=== PATIENT | female | born 1960 | race Caucasian/White ===

== ENCOUNTER 2017-07-21 13:07 | Observation (INO) | payer MEDICARE, MEDICAID ==
[2017-07-21 14:27] LABS: Bilirubin Negative (Negative); Blood, Urine Negative (Negative); Clarity CLEAR (Clear); Glucose, Urine (Dipstick) 100 mg/dL (Negative); Leukocyte Trace (Negative); Nitrite Negative (Negative); Protein, Urine (Dipstick) Negative (Neg-Trace); Urobilinogen 0.2 mg/dL (0.2-1.0)
[2017-07-21 14:29] LABS: Bacteria/HPF 4+ HPF (None Seen); Hyaline Casts/LPF 0-3 HYALINE CAST LPF (0-3 Hyaline); RBC/HPF 0-3 HPF (0-3); Squamous Epithelial 0-3 HPF (0-3)
[2017-07-21] MEDS ORDERED: Nitroglycerin 0.4 MG TAB (25 Tab Bottle) ONE (14:38)
[2017-07-21] MEDS ORDERED: Aspirin 325 MG TAB ONE (14:38)
--- NOTE | 2017-07-21 15:06 | RAD ---
UPRIGHT PORTABLE CHEST 1 VIEW: Date: 07/21/17 HISTORY: 56-year-old female with history of chest pain and high blood pressure. COMPARISON: 08/09/16. FINDINGS: There are some vertically oriented parenchymal, as well as some pleural chronic changes in the right chest. Heart size is normal. The left lung is clear. IMPRESSION: Stable pleural and parenchymal scarring changes in the right chest. No significant acute process. POS: OFF
[2017-07-21 15:42] LABS: #Basophils 0.1 thou/uL (0.0-0.2); #Eosinphils 0.3 thou/uL (0.0-0.7); #Lymphocytes 2.3 thou/uL (1.20-3.40); #Monocytes 1.1 thou/uL (0.11-0.59); #Neutrophils 6.9 thou/uL (1.40-6.50); %Basophils 0.7 % (0.0-1.0); %Eosinophils 3.2 % (0.0-10.0); %Lymphocytes 21.5 % (21.0-51.0); %Neutrophils 64.5 % (42.0-75.0); Hemoglobin 12.9 g/dL (12.0-16.0); Mean Corpuscular Hemoglobin 27.3 pg (27.0-31.0); Mean Corpuscular Volume 82.7 fl (81.0-99.0); Mean Platelet Volume 6.7 fL (7.4-10.4); Platelet Count 356 thou/uL (130-400); RBC Distribution Width 13.6 % (11.5-14.5); Red Blood Cell (RBC) Count 4.72 mill/uL (4.20-5.40); White Blood Cell (WBC) Count 10.7 thou/uL (4.8-10.8)
[2017-07-21 15:55] LABS: ALT (SGPT) 23 U/L (8-55); AST (SGOT) 18 U/L (5-34); Albumin 3.8 g/dL (3.5-5.0); Alkaline Phosphatase 86 U/L (40-150); Anion Gap 8 mmol/L (10-20); BUN (Urea Nitrogen) 15 mg/dL (9.8-20.1); Bilirubin, Total 0.4 mg/dL (0.2-1.2); CK (CPK) 38 U/L (29-168); Calc. Creatinine Clearance 0 mL/min (70-130); Carbon Dioxide 27 mmol/L (22-29); Chloride 103 mmol/L (98-107); Estimated GFR-MDRD 61; Globulin 3.2 g/dL (2.4-3.5); Glucose 121 mg/dL (70-105); Lipase 26 U/L (8-78); Sodium 135 mmol/L (136-145)
[2017-07-21 15:59] LABS: CKMB 0.8 ng/mL (0-6.6); Troponin I Less than 0.010 ng/mL (< 0.028)
[2017-07-21] MEDS ORDERED: Morphine 4 MG/ML VIAL ONE (17:25)
[2017-07-21] MEDS ORDERED: Nitroglycerin 0.4 MG TAB (25 Tab Bottle) PO PRN (17:27)
[2017-07-21] MEDS ORDERED: Milk Of Magnesia 30 ML UDCUP PO PRN (17:29)
[2017-07-21 18:51] LABS: Troponin I Less than 0.010 ng/mL (< 0.028)
[2017-07-21] MEDS ORDERED: Promethazine 25 MG TAB PO PRN (19:05)
[2017-07-21] MEDS ORDERED: clonazePAM 0.5 MG TAB PO PRN (19:05)
[2017-07-21] MEDS ORDERED: Dextrose 5% in Water 1,000 ML IV PRN (19:29)
[2017-07-21] MEDS ORDERED: HumaLOG 300 UNITS/3 ML VIAL SC PRN ×2 (19:29)
[2017-07-21] MEDS ORDERED: Dextrose 50% Abboject 50 ML SYRINGE SLOW IVP PRN (19:29)
[2017-07-21 19:41] VITALS: BMI 38.7
[2017-07-21] MEDS ORDERED: Nicotine 14 MG PATCH TD SCH (20:00)
--- NOTE | 2017-07-21 20:15 | HP ---
PRIMARY CARE PHYSICIAN: None. PRESENTING COMPLAINT: Chest pain. HISTORY OF PRESENT ILLNESS: Ms. Ryan Escobar is a 56-year-old female with a past medical history of C HF, type 2 diabetes mellitus, hypertension, depression, hyperlipidemia, hypothyroidism, CKD 3 who pre sented to the emergency room with a 1-week history of intermittent substernal chest pain. She descri bes as heaviness in her chest "like someone sitting on her chest" associated with shooting pains retr osternally. Pain has been worsening for the past few days and then she decided to come to the emerge ncy room. She states it is an 8/10, lasted for about 20 minutes, does not radiate and has no clear a ggravating or relieving factors as it occasionally occurs while walking and sometimes when she is lyi ng down in bed. She has not had any previous episodes. She denies shortness of breath, PND, orthopn ea, palpitations or lower extremity edema. She has not had a stress test in the past or cardiac cath eterization. PAST MEDICAL HISTORY: As stated in the HPI. PAST SURGICAL HISTORY: Cholecystectomy, hysterectomy, orthopedic surgery on the left knee, herniorrh aphy, hysterectomy. FAMILY HISTORY: Reviewed and noncontributory. SOCIAL HISTORY: Smokes half a pack of cigarettes a day, but denies drinking alcohol or using illicit drugs. ALLERGIES: PENICILLIN and FLAGYL. HOME MEDICATIONS: Cholecalciferol 1000 units daily, famotidine 20 mg at bedtime, ranitidine 150 mg b .i.d., amlodipine 5 mg daily, aspirin 81 mg daily, bupropion hydrochloride 75 mg daily, carvedilol 25 mg b.i.d. with meals, citalopram hydrobromide 40 mg daily, Ativan 0.5 mg daily, clonidine 0.1 mg t.i .d., furosemide 40 mg daily, hydralazine 75 mg t.i.d., levothyroxine sodium 125 mcg daily, lisinopril 20 mg daily, lovastatin 40 mg q.p.m., metformin 1000 mg b.i.d., nifedipine 60 mg daily, omeprazole 2 0 mg daily, potassium chloride 20 mEq daily, promethazine 25 mg q.12 hours p.r.n., trazodone 100 mg a t bedtime. REVIEW OF SYSTEMS: Constitutional: Negative. HEENT: Negative. Cardiovascular: Per HPI. Respira tory: Denies cough, shortness of breath, sputum production. GI: Negative. : Negative. Musculoskeletal: Negative. Skin: Negative. Neurologic: Negative. Hematology/Lym phatic: Negative. Psychiatric: Negative. Allergy/Immunology: Negative. PHYSICAL EXAMINATION: VITAL SIGNS: Initial vital signs at presentation, blood pressure 155/88, oxygen saturation 95% on ro om air, respiratory rate 19, temperature 97.8 degrees Fahrenheit. CONSTITUTIONAL: Not in acute distress, lying comfortably in bed. HEENT: Normocephalic, atraumatic. Not pale, anicteric. Moist mucous membranes, PERRLA. EOMI. RESPIRATORY: Chest nontender to palpation. Vesicular breath sounds bilaterally. No wheezes, rales or rhonchi. CARDIOVASCULAR: S1, S2, only regular rate and rhythm. No murmurs, rubs or gallops. ABDOMEN: Soft, nontender, nondistended. Bowel sounds normoactive. No hepatosplenomegaly. NEUROLOGIC: Alert and well oriented to time, place and person. No focal deficits. SKIN: Warm, dry, well-perfused. No rashes or lesions. MUSCULOSKELETAL: No edema. Moves all extremities spontaneously. PSYCHIATRIC: Normal mood and affect. LABORATORY DATA: CBC is largely unremarkable. CMP with potassium of 3.0. Initial troponin less katie n 0.010. EKG with no signs of acute ischemia. Chest x-ray showed no acute, cardiopulmonary process. ASSESSMENT AND PLAN: 1. Unstable angina: Patient with a significant medical history presenting with intermittent chest p ain at rest. She has been admitted to rule out acute coronary syndrome. Troponin will be trended. She will be admitted on telemetry. She will also be placed on sublingual nitroglycerin p.r.n., daily aspirin and a pharmacological stress test will be ordered as the patient states she is unable to exe rcise due to her previous surgeries. Depending on the results, then Cardiology will be consulted. S he is currently chest pain free. 2. Type 2 diabetes mellitus. Glucose level is currently at goal. We will obtain hemoglobin A1c. H old on metformin since she might be getting contrast on this admission, placed on sliding scale insul in, fingerstick glucose before meals and at bedtime, hyperglycemia protocol and a diabetic diet. 3. Hypertension. She has fair blood pressure control. We will gradually reintroduce home medicatio n regimen. She takes amlodipine, carvedilol, clonidine, hydralazine, lisinopril, and nifedipine. It is unlikely she will need all these medications, so we will gradually introduce her regimen. 4. Congestive heart failure: The patient is currently euvolemic, not in acute exacerbation. We reyes l restart home medications. 5. Hyperlipidemia. Continue statin. 6. Depression. We will continue home medication. 7. Hypothyroidism. We will obtain TSH and continue Synthroid. 8. Deep venous thrombosis prophylaxis with subcutaneous heparin. CODE STATUS: FULL CODE.
[2017-07-21] MEDS ORDERED: Potassium Chloride 20 MEQ TAB PO SCH (20:45)
[2017-07-21] MEDS ORDERED: Melatonin 3 MG TAB PO PRN (20:49)
[2017-07-21] MEDS ORDERED: traZODone HCl 50 MG TAB PO SCH (21:00)
[2017-07-21] MEDS ORDERED: hydrALAZINE 25 MG TAB PO SCH (21:00)
[2017-07-21] MEDS: cloNIDine 0.1 MG TAB PO SCH (21:01)
[2017-07-21] MEDS: Docusate 100 MG CAP PO SCH (21:01)
[2017-07-21] MEDS: Heparin 5,000 UNITS/ML VIAL SC SCH (21:02)
[2017-07-21 21:27] LABS: Hemoglobin 12.7 g/dL (12.0-16.0)
[2017-07-21 21:52] LABS: Troponin I Less than 0.010 ng/mL (< 0.028)
[2017-07-21] MEDS ORDERED: Ibuprofen 200 MG TAB PO PRN (23:44)
[2017-07-22 05:01] LABS: #Basophils 0.1 thou/uL (0.0-0.2); #Eosinphils 0.4 thou/uL (0.0-0.7); #Lymphocytes 2.3 thou/uL (1.20-3.40); #Monocytes 0.9 thou/uL (0.11-0.59); %Basophils 0.7 % (0.0-1.0); %Eosinophils 5.1 % (0.0-10.0); %Lymphocytes 30.5 % (21.0-51.0); %Monocytes 11.3 % (0.0-10.0); %Neutrophils 52.4 % (42.0-75.0); Hemoglobin 12.1 g/dL (12.0-16.0); Mean Corpuscular HGB CONC 31.5 g/dL (32.0-36.0); Mean Corpuscular Hemoglobin 26.4 pg (27.0-31.0); Mean Corpuscular Volume 83.8 fl (81.0-99.0); Mean Platelet Volume 6.6 fL (7.4-10.4); Platelet Count 311 thou/uL (130-400); RBC Distribution Width 13.6 % (11.5-14.5); Red Blood Cell (RBC) Count 4.58 mill/uL (4.20-5.40); White Blood Cell (WBC) Count 7.7 thou/uL (4.8-10.8)
[2017-07-22 05:09] LABS: Anion Gap 13 mmol/L (10-20); BUN (Urea Nitrogen) 13 mg/dL (9.8-20.1); Calc. Creatinine Clearance 100 mL/min (70-130); Carbon Dioxide 27 mmol/L (22-29); Cardiac Risk 3.6 (Less than 4.5); Chloride 105 mmol/L (98-107); Cholesterol 112 mg/dl (< 200 Desired); Estimated GFR-MDRD 59; Glucose 96 mg/dL (70-105); HDL Cholesterol 31 mg/dL (>60 Neg Risk); LDL Cholesterol, Calculated 60 mg/dL; Magnesium 1.8 mg/dL (1.6-2.6); Potassium 3.2 mmol/L (3.5-5.1); Sodium 142 mmol/L (136-145); Triglycerides 107 mg/dL (Less than 150)
[2017-07-22] MEDS ORDERED: Levothyroxine Sodium 125 MCG TAB PO SCH (06:00)
[2017-07-22] MEDS ORDERED: Furosemide 40 MG TAB PO SCH (07:30)
[2017-07-22] MEDS ORDERED: metFORMIN 500 MG TAB PO SCH (08:00)
[2017-07-22] MEDS ORDERED: Carvedilol 25 MG TAB PO SCH (08:00)
[2017-07-22] MEDS: cloNIDine 0.1 MG TAB PO SCH (08:32)
[2017-07-22] MEDS: Heparin 5,000 UNITS/ML VIAL SC SCH (08:33)
[2017-07-22] MEDS ORDERED: Aspirin 81 mg Enteric Coated Tablet PO SCH (09:00)
[2017-07-22] MEDS ORDERED: buPROPion 75 MG TAB PO SCH (09:00)
[2017-07-22] MEDS ORDERED: Amlodipine 5 MG TAB PO SCH (09:00)
[2017-07-22] MEDS ORDERED: NIFEdipine XL 60 MG TAB PO SCH ×2 (09:00)
[2017-07-22] MEDS ORDERED: Potassium Chloride 20 MEQ TAB PO SCH (09:00)
[2017-07-22] MEDS ORDERED: Lisinopril 20 MG TAB PO SCH (09:00)
[2017-07-22] MEDS ORDERED: Citalopram 20 MG TAB PO SCH (09:00)
[2017-07-22] MEDS: Docusate 100 MG CAP PO SCH (11:33)
[2017-07-22] MEDS ORDERED: Regadenoson 0.4 MG/5 ML SYRINGE ONE (11:39)
--- NOTE | 2017-07-22 12:06 | NM ---
CARDIAC SPECT: CLINICAL HISTORY: 56-year-old female with chest pain, diabetes, hypertension, hyperlipidemia, and CHF. TECHNIQUE: A stress-only myocardial perfusion scan was performed following the intravenous administration of 33 mCi technetium-99m sestamibi. Pharmacologic stress with Lexiscan was monitored and interpreted by Dr. Roe. FINDINGS: Homogeneous tracer distribution is seen in the myocardial segments on the post stress images. GATED SPECT LVEF: 67%. WALL MOTION EXAM: Normal. IMPRESSION: Normal post stress myocardial perfusion scan. POS: [facility]
[2017-07-22 12:12] VITALS: BP 180/84; TEMP 97.2
[2017-07-22] MEDS ORDERED: Atorvastatin Calcium 10 MG TAB PO SCH (17:00)
--- NOTE | 2017-07-24 07:59 | DIS ---
DATE OF ADMISSION: 07/21/2017 DATE OF DISCAHRGE: 07/22/2017 DISCHARGE DISPOSITION: Home. FOLLOWUP: 1. Follow up with primary care physician, Dr. Gomez in 1 week. 2. Outpatient cardiac rehabilitation. ALLERGIES: The patient is allergic to FLAGYL, PENICILLIN, and ACETAMINOPHEN. DISCHARGE MEDICATIONS: Same as admission medication with addition of sublingual nitroglycerin and Ba ctrim for next 5 days. BRIEF HOSPITAL COURSE: The patient is a 56-year-old female with diabetes mellitus type 2, hypertensi on who presented to the hospital with chest discomfort. Please refer to the history and physical mushtaq ed 07/21/2017 for further details. The patient was admitted to the hospital with a diagnosis of chest discomfort, rule out acute coronar y syndrome. Serial cardiac enzymes were negative. She underwent a Cardiolite stress test that was n egative for reversible ischemia. Ejection fraction was 67%. She was also diagnosed with Escherichia coli urinary tract infection. She will be discharged home on Bactrim. At the time of my evaluation , she denied any chest pain. Plan of care was discussed with the patient in detail. She stated understanding. FINAL DIAGNOSES: 1. Chest discomfort, acute coronary syndrome ruled out. Troponins were negative. 2. Diabetes mellitus type 2. 3. Hypertension. 4. Hyperlipidemia. 5. Hypokalemia. 6. Hyponatremia. 7. Obesity with a BMI 38.8. 9. Depression without any suicidal ideation. 10. Hypothyroidism.
== END 2017-07-22 14:15 | disposition home or self-care (01) ==
LOC: ERS 13:07 → 2SW 16:56
PROVIDERS: ADMIT Internal Medicine; ATTEND Internal Medicine
DX: R07.89 Other chest pain (principal); E11.9 Type 2 diabetes mellitus without complications; E78.5 Hyperlipidemia, unspecified; E87.6 Hypokalemia; E87.1 Hypo-osmolality and hyponatremia; E03.9 Hypothyroidism, unspecified; I11.0 Hypertensive heart disease with heart failure; I50.9 Heart failure, unspecified; F32.9 Major depressive disorder, single episode, unspecified; F17.210 Nicotine dependence, cigarettes, uncomplicated; E66.01 Morbid (severe) obesity due to excess calories; Z68.38 Body mass index [BMI] 38.0-38.9, adult; Z88.2 Allergy status to sulfonamides; Z88.8 Allergy status to other drugs, medicaments and biological substances; Z79.84 Long term (current) use of oral hypoglycemic drugs; Z79.899 Other long term (current) drug therapy
CPT/HCPCS: 71045; 78452; 80048; 80053; 80061; 82550; 82553; 82962 ×2; 83690; 83735; 83880; 84443; 84484 ×2; 85014; 85018; 85025 ×2; 87077; 87086; 87186; 93005; 93017; 94760; 96374; 99285; A9500; G0378; 36415; 36416; 81003; 81015; J0744; J1644; J2270; J2785

== ENCOUNTER 2017-10-24 14:46 | Outpatient (CLI) | payer MEDICARE, MEDICAID ==
[2017-10-24 15:55] LABS: Hemoglobin 12.3 g/dL (12.0-16.0); Mean Corpuscular HGB CONC 33.3 g/dL (32.0-36.0); Mean Corpuscular Volume 84.1 fL (78.0-98.0); Mean Platelet Volume 6.4 fL (7.4-10.4); Platelet Count 337 thou/uL (130-400); RBC Distribution Width 13.6 % (11.5-14.5); Red Blood Cell (RBC) Count 4.39 mill/uL (4.20-5.40); White Blood Cell (WBC) Count 11.4 thou/uL (4.8-10.8)
[2017-10-24 16:15] LABS: Anion Gap 14 mmol/L (10-20); BUN (Urea Nitrogen) 15 mg/dL (9.8-20.1); Calc. Creatinine Clearance 0 mL/min (70-130); Carbon Dioxide 24 mmol/L (22-29); Chloride 106 mmol/L (98-107); Estimated GFR-MDRD 45; Glucose 152 mg/dL (70-105); Potassium 3.5 mmol/L (3.5-5.1); Sodium 140 mmol/L (136-145)
== END 2017-10-24 14:47 | disposition home or self-care (01) ==
LOC: LABBT 14:46
PROVIDERS: ATTEND Orthopaedic Surgery
DX: Z01.812 Encounter for preprocedural laboratory examination (principal); M17.11 Unilateral primary osteoarthritis, right knee
CPT/HCPCS: 80048; 85027; 85610; 87081

== ENCOUNTER 2017-10-27 13:15 | Outpatient (CLI) | payer MEDICARE, MEDICAID | END 2017-10-27 13:16 | disposition home or self-care (01) | LOC: LABBT 13:15 | PROVIDERS: ATTEND Orthopaedic Surgery | DX: Z01.812 Encounter for preprocedural laboratory examination (principal); M17.11 Unilateral primary osteoarthritis, right knee | CPT/HCPCS: 86850; 86900; 86901 ==

== ENCOUNTER 2018-01-05 12:36 | Outpatient (CLI) | payer MEDICARE, MEDICAID ==
[2018-01-05 14:01] LABS: Hemoglobin 11.9 g/dL (12.0-16.0); Mean Corpuscular HGB CONC 31.7 g/dL (32.0-36.0); Mean Corpuscular Hemoglobin 26.6 pg (27.0-31.0); Mean Platelet Volume 6.7 fL (7.4-10.4); Platelet Count 362 thou/uL (130-400); RBC Distribution Width 14.2 % (11.5-14.5); Red Blood Cell (RBC) Count 4.47 mill/uL (4.20-5.40); White Blood Cell (WBC) Count 9.8 thou/uL (4.8-10.8)
[2018-01-05 14:08] LABS: INR-International Normal Ratio 0.9; Prothrombin Time 12.7 SEC (12.0-14.7)
[2018-01-05 14:13] LABS: Anion Gap 13 mmol/L (10-20); BUN (Urea Nitrogen) 14 mg/dL (9.8-20.1); Calc. Creatinine Clearance 0 mL/min (70-130); Carbon Dioxide 24 mmol/L (22-29); Chloride 107 mmol/L (98-107); Estimated GFR-MDRD 57; Glucose 121 mg/dL (70-105); Potassium 3.8 mmol/L (3.5-5.1); Sodium 140 mmol/L (136-145)
[2018-01-05 14:14] LABS: ALT (SGPT) 20 U/L (8-55); AST (SGOT) 16 U/L (5-34); Albumin 3.9 g/dL (3.5-5.0); Alkaline Phosphatase 82 U/L (40-150); Bilirubin, Direct 0.2 mg/dL (0.1-0.3); Bilirubin, Total 0.6 mg/dL (0.2-1.2); Protein, Total 6.6 g/dL (6.0-8.3)
== END 2018-01-05 12:37 | disposition home or self-care (01) ==
LOC: LABBT 12:36
PROVIDERS: ATTEND Orthopaedic Surgery
DX: Z01.812 Encounter for preprocedural laboratory examination (principal); M17.11 Unilateral primary osteoarthritis, right knee
CPT/HCPCS: 80048; 80076; 85027; 85610; 87081

== ENCOUNTER 2018-01-12 10:45 | Outpatient (CLI) | payer MEDICARE, MEDICAID | END 2018-01-12 10:46 | disposition home or self-care (01) | LOC: LABBT 10:45 | PROVIDERS: ATTEND Orthopaedic Surgery | DX: Z01.812 Encounter for preprocedural laboratory examination (principal); M17.11 Unilateral primary osteoarthritis, right knee | CPT/HCPCS: 86850; 86900; 86901 ==

== ENCOUNTER 2018-01-16 10:16 | Inpatient (IN) | payer MEDICARE, MEDICAID ==
[2018-01-05 12:52] VITALS: BMI 40.6
[2018-01-16] MEDS ORDERED: Fentanyl 100 MCG/2 ML VIAL ONE ×2 (11:26→14:21)
[2018-01-16] MEDS ORDERED: Midazolam HCl 2 mg/2 ml Vial ONE (11:26)
[2018-01-16] MEDS ORDERED: Neomycin-Polymyxin 1 ML AMP ONE ×2 (11:27→11:29)
[2018-01-16] MEDS ORDERED: Bupivacaine HCl 0.5%/Epinephrine 1:200,000/PF 30 ml Vial ONE ×2 (11:27→15:33)
[2018-01-16] MEDS ORDERED: Ketorolac Tromethamine 30 MG/ML VIAL ONE (11:27)
[2018-01-16] MEDS ORDERED: Sodium Chloride 0.9% 0 ML ONE (11:29)
[2018-01-16] MEDS ORDERED: Levofloxacin 500 mg/D5W 100 ml Premix Bag ONE (11:30)
[2018-01-16] MEDS ORDERED: Clindamycin/D5W 900 mg/50 ml Premix Bag ONE (11:30)
[2018-01-16] MEDS ORDERED: Sodium Chloride 0.9% 100 ML ONE (11:41)
[2018-01-16] MEDS ORDERED: Zolpidem Tartrate 5 MG TAB PO PRN ×2 (12:12→14:04)
[2018-01-16] MEDS ORDERED: Ropivacaine HCl/PF 250 ML in Premix Bag 1 BAG NERVE BLCK SCH (12:12)
[2018-01-16] MEDS ORDERED: Promethazine HCl 25 MG/ML VIAL IM PRN ×3 (12:12→14:04)
[2018-01-16] MEDS ORDERED: Morphine CADD 1 MG/ML CADD IV PRN (12:13)
[2018-01-16] MEDS ORDERED: Naloxone HCl 0.4 mg/ml Vial IV PRN (12:13)
[2018-01-16] MEDS ORDERED: Triamcinolone 40 MG/ML VIAL ONE (12:31)
[2018-01-16] MEDS ORDERED: Ondansetron HCl/PF 4 MG/2 ML Vial IVP PRN (13:14)
[2018-01-16] MEDS ORDERED: Promethazine HCl 25 MG/ML VIAL SLOW IVP PRN (13:14)
[2018-01-16] MEDS ORDERED: Fentanyl 100 MCG/2 ML VIAL SLOW IVP PRN ×2 (14:04→18:14)
[2018-01-16] MEDS ORDERED: traMADol HCl 50 MG TAB PO PRN ×2 (14:04→18:15)
[2018-01-16] MEDS ORDERED: Ondansetron PF 4 MG/2 ML Vial IVP PRN (14:04)
[2018-01-16] MEDS ORDERED: diphenhydrAMINE 25 MG CAP PO PRN (14:04)
[2018-01-16] MEDS ORDERED: Ropivacaine 0.2% HCl/PF (40 MG/20 ML VIAL) ONE (15:33)
--- NOTE | 2018-01-16 15:43 | RAD ---
TWO VIEWS OF THE RIGHT KNEE: 01/16/18 COMPARISON: None. HISTORY: Right knee pain status post right knee arthroplasty. FINDINGS: Two views of the right knee shows no evidence of acute fracture or dislocation. No perihardware lucen cy or fracture is seen. Air in soft tissues and overlying skin yudelka are from recent surgery. IMPRESSION: Status post right knee arthroplasty without evidence of complication. POS: [facility]
[2018-01-16] MEDS: Clindamycin/D5W 900 MG in Premix Bag 1 BAG IVPB SCH ×2 (16:48→23:50)
[2018-01-16] MEDS ORDERED: PROPOFOL 200 MG/20 ML VIAL ONE (17:13)
[2018-01-16] MEDS ORDERED: ePHEDrine/0.9% NaCl/PF SYRINGE 50 mg/10 ml ONE (17:13)
[2018-01-16] MEDS ORDERED: Lidocaine 1% PF 5 ML VIAL ONE (17:13)
[2018-01-16] MEDS ORDERED: Nitroglycerin 0.4 MG TAB (25 Tab Bottle) SL PRN (18:24)
[2018-01-16] MEDS ORDERED: Carvedilol 25 MG TAB PO SCH (18:30)
[2018-01-16] MEDS: Nicotine 7 MG PATCH TD SCH (18:36)
[2018-01-16] MEDS: cloNIDine 0.1 MG TAB PO SCH (20:52)
[2018-01-16] MEDS: Aspirin 81 mg Enteric Coated Tablet PO SCH (20:52)
[2018-01-16] MEDS: Famotidine 20 MG TAB PO SCH (20:53)
[2018-01-16] MEDS: hydrALAZINE 25 MG TAB PO SCH (20:54)
[2018-01-16] MEDS: Nitrofurantoin Monohyd/M-Cryst 100 MG CAP PO SCH (20:54)
[2018-01-16] MEDS: Ketorolac Tromethamine 30 MG/ML VIAL IVP SCH (20:55)
[2018-01-16] MEDS: traZODone HCl 50 MG TAB PO SCH (20:55)
--- NOTE | 2018-01-16 21:36 | OP ---
DATE OF PROCEDURE: 01/16/2018 OPERATIONS: 1. Right total knee arthroplasty. 2. Bilateral ankle corticosteroid injection. PREOPERATIVE DIAGNOSES: Right advanced knee arthritis, grade 4, bilateral ankle synovitis and imping ement. POSTOPERATIVE DIAGNOSES: Right advanced knee arthritis, grade 4, bilateral ankle synovitis and impin gement. COMPLICATIONS: None. ESTIMATED BLOOD LOSS: Minimal. SURGEON: Gatito Hernandez M.D. EMPLOYEE WELLNESS/FITNESS COORDINATOR: Deacon Lang PA-C. IMPLANTS: DePuy total knee arthroplasty Sigma size 3 femur, size 2.5 tibia, 12.5 polyethylene and 35 mm oval patella. INDICATIONS: Ms. Davis is a 57-year-old female who has advanced right knee arthritis. She has a his tory of left total knee arthroplasty several years ago. She has elected to proceed with total knee a rthroplasty after failing conservative treatment regarding her right knee. She is aware of risks and benefits as well as postoperative recovery process. DESCRIPTION OF PROCEDURE: Ms. Davis was identified in the preoperative holding area. Her correct ex tremity was marked. She was carried to the operating room. She was positioned supine. General anes thesia was induced. A multidisciplinary timeout was performed. The right lower extremity was preppe d and draped in sterile fashion. At this point, we began the procedure with anterior incision over the knee. We dissected down throug h the subcutaneous tissues to the patellar retinaculum. We performed a medial parapatellar arthrotom y. At this point, the knee joint was exposed. We performed a synovectomy as well as a medial releas e. We then removed 50% of the anterior fat pad. At this point, we everted the patella. We resected patellar bone. An 11 mm was removed. We drilled for a 35 mm patellar button. This reconstituted p atellar height. At this point, we flexed the knee. We entered the intramedullary canal of the femur . We then made our distal femoral cut. We made our anterior, posterior, and chamfer cuts as well as box cut using the appropriate guides. We sized using the appropriate sizer as well. At this point, we moved to the tibia. We resected 2 mm from the medial tibial plateau. We then removed osteophyte s from the posterior knee. We then punched and drilled the tibial plateau. At this point, we triale d with our components. A 12.5 polyethylene gave good range of motion and full extension. At this po int, we placed our final components with cement. We held the knee in extension until fully hardened. We then removed excess cement and irrigated. At this point, we closed with #2-0 Vicryl suture and yudelka for the skin. A sterile dressing was applied. At this point, we used a 22 gauge needle to i nject the anterior lateral soft spot of the left ankle with palpation. We injected 40 mg of Kenalog and 6 mL of Marcaine. Finally, we injected the right ankle in a similar position at the anterolatera l ankle joint. At this point, the patient was taken to the recovery room in good condition without c omplication.
[2018-01-16] MEDS ORDERED: Vancomycin HCl 1 GM in Premix Bag 1 BAG IVPB SCH (23:59)
[2018-01-17 05:33] LABS: Hemoglobin 11.1 g/dL (12.0-16.0); Mean Corpuscular HGB CONC 31.2 g/dL (32.0-36.0); Mean Corpuscular Hemoglobin 26.1 pg (27.0-31.0); Mean Corpuscular Volume 83.7 fL (78.0-98.0); Mean Platelet Volume 6.6 fL (7.4-10.4); Platelet Count 308 thou/uL (130-400); Red Blood Cell (RBC) Count 4.25 mill/uL (4.20-5.40); White Blood Cell (WBC) Count 13.7 thou/uL (4.8-10.8)
[2018-01-17] MEDS: Ketorolac Tromethamine 30 MG/ML VIAL IVP SCH (06:12)
[2018-01-17] MEDS: Levothyroxine Sodium 125 MCG TAB PO SCH (06:12)
[2018-01-17] MEDS: NIFEdipine XL 60 MG TAB PO SCH (08:27)
[2018-01-17] MEDS: Ferrous Gluconate 324 MG TAB PO SCH ×2 (08:28→21:36)
[2018-01-17] MEDS: metFORMIN 500 MG TAB PO SCH ×2 (08:28→16:43)
[2018-01-17] MEDS: Multivitamin W/ Minerals 1 TAB PO SCH (08:28)
[2018-01-17] MEDS: Nitrofurantoin Monohyd/M-Cryst 100 MG CAP PO SCH ×2 (08:29→21:37)
[2018-01-17] MEDS: Famotidine 20 MG TAB PO SCH ×2 (08:29→21:35)
[2018-01-17] MEDS: Aspirin 81 mg Enteric Coated Tablet PO SCH ×2 (08:29→21:37)
[2018-01-17] MEDS: cloNIDine 0.1 MG TAB PO SCH ×3 (08:29→21:37)
[2018-01-17] MEDS: Amlodipine 5 MG TAB PO SCH (08:29)
[2018-01-17] MEDS: Senokot S 8.6-50 MG TAB PO SCH ×2 (08:29→21:37)
[2018-01-17] MEDS: buPROPion 75 MG TAB PO SCH (08:29)
[2018-01-17] MEDS: Carvedilol 25 MG TAB PO SCH ×2 (08:29→16:42)
[2018-01-17] MEDS: Citalopram 20 MG TAB PO SCH (08:30)
[2018-01-17] MEDS ORDERED: clonazePAM 0.5 MG TAB PO SCH (09:00)
[2018-01-17] MEDS: hydrALAZINE 25 MG TAB PO SCH ×3 (10:23→21:34)
[2018-01-17] MEDS ORDERED: traMADol HCl 50 MG TAB PO PRN (10:55)
[2018-01-17] MEDS ORDERED: Fentanyl 100 MCG/2 ML VIAL SLOW IVP PRN (10:55)
--- NOTE | 2018-01-17 13:52 | PDOC.PN ---
- Subjective Encounter Start Date: 01/17/18 Encounter Start Time: 10:10 follow up for: consult for medical management of tobacco abuse, HTN, CAD with neg stress recently. s/p left TKA pain uncontrolled No F/C, no N/V/D/C, no CP or SOB All systems reviewed and neg x as per HPI - Objective MAR Reviewed: Yes Vital Signs & Weight: Vital Signs (12 hours) Temp Pulse Resp BP BP Pulse Ox 01/17/18 11:38 98.4 F 83 18 111/57 L 96 01/17/18 10:23 71 121/85 01/17/18 08:29 71 121/85 01/17/18 08:27 71 01/17/18 07:18 97.9 F 71 20 121/85 95 01/17/18 04:22 98.5 F 68 20 161/94 H 95 Weight Admit Weight 222 lb Weight 222 lb I&O: 01/16/18 01/17/18 01/18/18 06:59 06:59 06:59 Intake Total 3210 Balance 3210 Result Diagrams: 01/18/18 03:31 Additional Labs: Accuchecks 01/17/18 01/17/18 01/16/18 11:39 06:25 21:05 POC Glucose 167 H 154 H 158 H Phys Exam - Physical Examination Constitutional: NAD HEENT: PERRLA, moist MMs, sclera anicteric, oral pharynx no lesions Neck: no nodes, no JVD, supple, full ROM Respiratory: no wheezing, no rales, no rhonchi, clear to auscultation bilateral Cardiovascular: RRR, no significant murmur, no rub Gastrointestinal: soft, non-tender, no distention, positive bowel sounds Musculoskeletal: no edema, pulses present Neurological: non-focal, normal sensation, moves all 4 limbs Lymphatic: no nodes Psychiatric: normal affect, A&O x 3 Skin: no rash, normal turgor, cap refill <2 seconds Dx/Plan (1) Anxiety and depression Code(s): F41.9 - ANXIETY DISORDER, UNSPECIFIED; F32.9 - MAJOR DEPRESSIVE DISORDER, SINGLE EPISODE, UNSPECIFIED Status: Chronic (2) Diabetes type 2, controlled Code(s): E11.9 - TYPE 2 DIABETES MELLITUS WITHOUT COMPLICATIONS Status: Chronic Qualifiers: Diabetes mellitus demi chef insulin use: without demi chef use Diabetes mellitus complication status: without complication Qualified Code(s): E11.9 - Type 2 diabetes mellitus without complications (3) Hypertension Code(s): I10 - ESSENTIAL (PRIMARY) HYPERTENSION Status: Chronic Qualifiers: Hypertension type: essential hypertension Qualified Code(s): I10 - Essential (primary) hypertension (4) Hypothyroidism Code(s): E03.9 - HYPOTHYROIDISM, UNSPECIFIED Status: Chronic Qualifiers: Hypothyroidism type: acquired Qualified Code(s): E03.9 - Hypothyroidism, unspecified (5) Obesity (BMI 30-39.9) Code(s): E66.9 - OBESITY, UNSPECIFIED Status: Chronic (6) Osteoarthritis Code(s): M19.90 - UNSPECIFIED OSTEOARTHRITIS, UNSPECIFIED SITE Status: Chronic Qualifiers: Osteoarthritis location: ankle Osteoarthritis type: primary Laterality: bilateral Qualified Code(s): M19.071 - Primary osteoarthritis, right ankle and foot; M19.072 - Primary osteoarthritis, left ankle and foot - Plan cont current plan of care, PT/OT, out of bed/ambulate * . - Discharge Day Patient offered the following for tobacco cessation: nicotine replacement
[2018-01-17] MEDS: Ondansetron PF 4 MG/2 ML Vial IVP PRN (13:57)
[2018-01-17] MEDS: Nicotine 7 MG PATCH TD SCH (18:14)
[2018-01-17] MEDS: traZODone HCl 50 MG TAB PO SCH (21:35)
[2018-01-18 04:24] LABS: Mean Corpuscular HGB CONC 31.5 g/dL (32.0-36.0); Mean Corpuscular Hemoglobin 26.8 pg (27.0-31.0); Mean Corpuscular Volume 85.1 fL (78.0-98.0); Mean Platelet Volume 6.9 fL (7.4-10.4); Platelet Count 283 thou/uL (130-400); Red Blood Cell (RBC) Count 3.72 mill/uL (4.20-5.40)
[2018-01-18] MEDS: Levothyroxine Sodium 125 MCG TAB PO SCH (05:40)
[2018-01-18] MEDS: hydrALAZINE 25 MG TAB PO SCH ×2 (07:41→07:43)
[2018-01-18] MEDS: Nitrofurantoin Monohyd/M-Cryst 100 MG CAP PO SCH (07:43)
[2018-01-18] MEDS: Citalopram 20 MG TAB PO SCH (07:43)
[2018-01-18] MEDS: Multivitamin W/ Minerals 1 TAB PO SCH (07:43)
[2018-01-18] MEDS: metFORMIN 500 MG TAB PO SCH (07:44)
[2018-01-18] MEDS: Ferrous Gluconate 324 MG TAB PO SCH (07:44)
[2018-01-18] MEDS: Aspirin 81 mg Enteric Coated Tablet PO SCH (07:45)
[2018-01-18] MEDS: buPROPion 75 MG TAB PO SCH (07:45)
[2018-01-18] MEDS: Senokot S 8.6-50 MG TAB PO SCH (07:45)
[2018-01-18] MEDS: Famotidine 20 MG TAB PO SCH (07:46)
[2018-01-18] MEDS: Carvedilol 25 MG TAB PO SCH (07:46)
[2018-01-18] MEDS: Amlodipine 5 MG TAB PO SCH (07:46)
[2018-01-18] MEDS: NIFEdipine XL 60 MG TAB PO SCH (07:46)
[2018-01-18] MEDS: cloNIDine 0.1 MG TAB PO SCH (07:46)
[2018-01-18] MEDS: Ondansetron PF 4 MG/2 ML Vial IVP PRN (08:27)
[2018-01-18] MEDS ORDERED: clonazePAM 0.5 MG TAB PO SCH (09:00)
--- NOTE | 2018-01-18 15:36 | PDOC.PN ---
- Subjective Encounter Start Date: 01/18/18 Encounter Start Time: 10:30 follow up for: consult for medical management of tobacco abuse, HTN, CAD with neg stress recently. s/p left TKA pain uncontrolled, but better. asked if she was going home and she stated she didnt have any help at home, but CM prepared fro her to go home today No F/C, no N/V/D/C, no CP or SOB All systems reviewed and neg x as per HPI - Objective MAR Reviewed: Yes Vital Signs & Weight: Vital Signs (12 hours) Temp Pulse Resp BP Pulse Ox 01/18/18 11:47 98.6 F 84 18 131/65 95 01/18/18 07:46 84 01/18/18 07:44 97.8 F 84 16 142/76 H 94 L 01/18/18 07:43 77 01/18/18 07:41 77 01/18/18 04:39 97.8 F 77 18 117/67 91 L Weight Admit Weight 222 lb Weight 222 lb I&O: 01/17/18 01/18/18 01/19/18 06:59 06:59 06:59 Intake Total 3210 2240 Balance 3210 2240 Result Diagrams: 01/18/18 03:31 Additional Labs: Accuchecks 01/17/18 01/17/18 21:37 15:26 POC Glucose 132 H 145 H Phys Exam - Physical Examination Constitutional: NAD HEENT: PERRLA, moist MMs, sclera anicteric, oral pharynx no lesions Neck: no nodes, no JVD, supple, full ROM Respiratory: no wheezing, no rales, no rhonchi, clear to auscultation bilateral Cardiovascular: RRR, no significant murmur, no rub Gastrointestinal: soft, non-tender, no distention, positive bowel sounds Musculoskeletal: no edema Neurological: non-focal, normal sensation, moves all 4 limbs Lymphatic: no nodes Psychiatric: normal affect, A&O x 3 Skin: no rash, normal turgor, cap refill <2 seconds Dx/Plan (1) Anxiety and depression Code(s): F41.9 - ANXIETY DISORDER, UNSPECIFIED; F32.9 - MAJOR DEPRESSIVE DISORDER, SINGLE EPISODE, UNSPECIFIED Status: Chronic (2) Diabetes type 2, controlled Code(s): E11.9 - TYPE 2 DIABETES MELLITUS WITHOUT COMPLICATIONS Status: Chronic Qualifiers: Diabetes mellitus buttermaker continuous churn insulin use: without fdc use Diabetes mellitus complication status: without complication Qualified Code(s): E11.9 - Type 2 diabetes mellitus without complications (3) Hypertension Code(s): I10 - ESSENTIAL (PRIMARY) HYPERTENSION Status: Chronic Qualifiers: Hypertension type: essential hypertension Qualified Code(s): I10 - Essential (primary) hypertension (4) Hypothyroidism Code(s): E03.9 - HYPOTHYROIDISM, UNSPECIFIED Status: Chronic Qualifiers: Hypothyroidism type: acquired Qualified Code(s): E03.9 - Hypothyroidism, unspecified (5) Obesity (BMI 30-39.9) Code(s): E66.9 - OBESITY, UNSPECIFIED Status: Chronic (6) Osteoarthritis Code(s): M19.90 - UNSPECIFIED OSTEOARTHRITIS, UNSPECIFIED SITE Status: Chronic Qualifiers: Osteoarthritis location: ankle Osteoarthritis type: primary Laterality: bilateral Qualified Code(s): M19.071 - Primary osteoarthritis, right ankle and foot; M19.072 - Primary osteoarthritis, left ankle and foot - Plan cont current plan of care, PT/OT, clinical social work therapist, out of bed/ambulate * . [facility], home when arranged and discharged by ortho
[2018-01-18 15:39] VITALS: BP 122/64; TEMP 97.6
--- NOTE | 2018-01-19 13:59 | DIS ---
DATE OF ADMISSION: 01/16/2018 DATE OF DISCHARGE: 01/18/2018 ATTENDING PHYSICIAN: Gatito Hernandez M.D. REASON FOR ADMISSION: Right total knee replacement and bilateral ankle injections. DATE OF PROCEDURE: 01/16/2018 PREOPERATIVE DIAGNOSES: Right advanced knee arthritis, grade 4, bilateral ankle synovitis and imping ement. POSTOPERATIVE DIAGNOSES: Right advanced knee arthritis, grade 4, bilateral ankle synovitis and impin gement. PROCEDURES PERFORMED: 1. Right total knee arthroplasty. 2. Bilateral ankle corticosteroid injection. BRIEF HOSPITAL COURSE: This is a 57-year-old female who has advanced right knee arthritis. She also has a history of a left total knee arthroplasty several years ago in which she did well. She electe d to proceed with right total knee arthroplasty of her failing conservative treatment regarding her r ight knee. She underwent the above-mentioned procedure. Postoperatively, she was admitted to [place] [id number] for postoperative analgesics and antibiotics. She worked with physical and occupational therapy. She did well postoperatively and no complications were incurred. On postoperative day #2, she was di scharged. DISCHARGE DISPOSITION: To home with home health care. DISCHARGE CONDITION: Stable. DISCHARGE INSTRUCTIONS: Patient will follow up in the Orthopedic Clinic in 2 weeks for reevaluation. She may weightbear as tolerated. DISCHARGE MEDICATIONS: See MAR. Aleshia Jean PA-C, on behalf of Gatito Hernandez M.D.
== END 2018-01-18 17:25 | disposition home health service (06) | DRG 470 ==
LOC: SDC 10:16 → SJJU 15:10
PROVIDERS: ADMIT Orthopaedic Surgery; ATTEND Orthopaedic Surgery
PROC: 0SRC0J9 Replacement of Right Knee Joint with Synthetic Substitute, Cemented, Open Approach (ICD-10-PCS; principal; 2018-01-16)
DX: M17.11 Unilateral primary osteoarthritis, right knee (principal); Z68.41 Body mass index [BMI] 40.0-44.9, adult; Z79.899 Other long term (current) drug therapy; Z79.1 Long term (current) use of non-steroidal anti-inflammatories (NSAID); Z96.652 Presence of left artificial knee joint; Z88.0 Allergy status to penicillin; Z88.1 Allergy status to other antibiotic agents; E11.9 Type 2 diabetes mellitus without complications; F41.9 Anxiety disorder, unspecified; F32.9 Major depressive disorder, single episode, unspecified; E03.9 Hypothyroidism, unspecified; I10 Essential (primary) hypertension; E66.9 Obesity, unspecified
CPT/HCPCS: 36415; 36416; 85027; 90471; 90686; C1713; C1776; G0008; G8978-GP-CK; G8979-GP-CI; J0670; J1885; J1956; J2001; J2250; J2274; J2405; J2550; J2704; J2795; J3010; J3301; J3370; J3490; J7050

== ENCOUNTER 2018-06-07 09:39 | Emergency (ER) | payer MEDICARE, MEDICAID ==
[2018-06-07 10:20] LABS: Bilirubin Negative (Negative); Blood, Urine Negative (Negative); Glucose, Urine (Dipstick) Negative (Negative); Leukocyte Negative (Negative); Nitrite Negative (Negative); Protein, Urine (Dipstick) Negative (Neg-Trace); Urobilinogen 0.2 mg/dL (0.2-1.0)
[2018-06-07 10:23] LABS: Clarity CLEAR (Clear)
[2018-06-07 11:56] LABS: #Eosinphils 0.3 thou/uL (0.0-0.7); #Lymphocytes 2.2 thou/uL (1.20-3.40); #Monocytes 0.9 thou/uL (0.11-0.59); #Neutrophils 7.7 thou/uL (1.40-6.50); %Basophils 0.4 % (0.0-1.0); %Eosinophils 3.1 % (0.0-10.0); %Lymphocytes 19.4 % (21.0-51.0); %Monocytes 8.3 % (0.0-10.0); %Neutrophils 68.8 % (42.0-75.0); Hemoglobin 13.1 g/dL (12.0-16.0); Mean Corpuscular HGB CONC 31.1 g/dL (32.0-36.0); Mean Corpuscular Hemoglobin 25.2 pg (27.0-31.0); Mean Platelet Volume 6.7 fL (7.4-10.4); Platelet Count 360 thou/uL (130-400); RBC Distribution Width 16.4 % (11.5-14.5); Red Blood Cell (RBC) Count 5.21 mill/uL (4.20-5.40); White Blood Cell (WBC) Count 11.2 thou/uL (4.8-10.8)
[2018-06-07] MEDS ORDERED: Ondansetron ODT 4 MG TAB ONE (12:12)
[2018-06-07 12:22] LABS: ALT (SGPT) 24 U/L (8-55); AST (SGOT) 19 U/L (5-34); Albumin 3.9 g/dL (3.5-5.0); Alkaline Phosphatase 91 U/L (40-150); Anion Gap 12 mmol/L (10-20); BUN (Urea Nitrogen) 9 mg/dL (9.8-20.1); Bilirubin, Total 0.3 mg/dL (0.2-1.2); CK (CPK) 44 U/L (29-168); Calc. Creatinine Clearance 0 mL/min (70-130); Calcium 9.3 mg/dL (7.8-10.44); Carbon Dioxide 24 mmol/L (22-29); Chloride 106 mmol/L (98-107); Estimated GFR-MDRD 57; Globulin 3.1 g/dL (2.4-3.5); Glucose 119 mg/dL (70-105); Potassium 4.1 mmol/L (3.5-5.1); Sodium 138 mmol/L (136-145)
== END 2018-06-07 12:54 | disposition home or self-care (01) ==
LOC: ERS 09:39
DX: R82.90 Unspecified abnormal findings in urine (principal); F41.9 Anxiety disorder, unspecified; F32.9 Major depressive disorder, single episode, unspecified; F17.210 Nicotine dependence, cigarettes, uncomplicated; E11.9 Type 2 diabetes mellitus without complications; I11.0 Hypertensive heart disease with heart failure; I50.9 Heart failure, unspecified; M19.90 Unspecified osteoarthritis, unspecified site; E03.9 Hypothyroidism, unspecified; Z79.51 Long term (current) use of inhaled steroids; Z79.891 Long term (current) use of opiate analgesic; Z79.82 Long term (current) use of aspirin; Z79.899 Other long term (current) drug therapy
CPT/HCPCS: 36415; 80053; 81003; 82550; 85025; 99283; Q0162

== ENCOUNTER 2021-10-28 12:06 | Emergency (ER) | payer OTHER ==
[2021-10-28 13:43] LABS: Bilirubin Negative (Negative); Blood, Urine Negative (Negative); Clarity Clear (Clear); Glucose, Urine (Dipstick) Normal (Negative); Ketone, Urine Negative (Negative); Leukocyte Negative Leu/uL (Negative); Nitrite Negative (Negative); Protein, Urine (Dipstick) Negative (Neg-Trace); Specific Gravity, Urine 1.004 (1.002-1.036); Urobilinogen Normal mg/dL (Less than 2); pH, Urine 5.5 (5.0-9.0)
[2021-10-28 14:09] LABS: #Basophils 0.1 thou/uL (0.0-0.2); #Eosinphils 0.2 thou/uL (0.0-0.7); #Lymphocytes 2.9 thou/uL (1.20-3.40); #Monocytes 0.9 thou/uL (0.11-0.59); #Neutrophils 6.9 thou/uL (1.40-6.50); %Basophils 0.7 % (0.0-1.0); %Lymphocytes 26.4 % (21.0-51.0); %Monocytes 8.2 % (0.0-10.0); %Neutrophils 62.7 % (42.0-75.0); Hemoglobin 14.1 g/dL (12.0-16.0); Mean Corpuscular HGB CONC 31.8 g/dL (32.0-36.0); Mean Corpuscular Hemoglobin 26.8 pg (27.0-31.0); Mean Corpuscular Volume 84.2 fL (78.0-98.0); Mean Platelet Volume 7.2 fL (7.4-10.4); Platelet Count 325 thou/uL (130-400); RBC Distribution Width 16.6 % (11.5-14.5); Red Blood Cell (RBC) Count 5.25 mill/uL (4.20-5.40)
[2021-10-28 14:22] LABS: Chloride 104 mmol/L (98-107); Potassium 3.6 mmol/L (3.5-5.1); Sodium 140 mmol/L (136-145)
[2021-10-28 14:24] LABS: Globulin 3.2 g/dL (2.4-3.5); Glucose 100 mg/dL (70-105); Protein, Total 7.2 g/dL (6.0-8.3)
[2021-10-28 14:25] LABS: Anion Gap 14 mmol/L (10-20); Bilirubin, Total 0.4 mg/dL (0.2-1.2); Carbon Dioxide 26 mmol/L (22-29)
[2021-10-28 14:26] LABS: Alkaline Phosphatase 122 U/L (40-110)
[2021-10-28 14:27] LABS: Calc. Creatinine Clearance 0 mL/min (70-130); Estimated GFR 57
[2021-10-28 14:28] LABS: BUN (Urea Nitrogen) 8 mg/dL (9.8-20.1)
[2021-10-28 14:29] LABS: ALT (SGPT) 19 U/L (8-55); AST (SGOT) 16 U/L (5-34)
[2021-10-28 15:08] LABS: SARS-CoV-2 NAA Rapid Test Not Detected (NotDetected)
== END 2021-10-28 15:30 | disposition home or self-care (01) ==
LOC: ERS 12:06
DX: J18.9 Pneumonia, unspecified organism (principal); I13.0 Hypertensive heart and chronic kidney disease with heart failure and stage 1 through stage 4 chronic kidney disease, or unspecified chronic kidney disease; E11.22 Type 2 diabetes mellitus with diabetic chronic kidney disease; N18.30 Chronic kidney disease, stage 3 unspecified; I50.9 Heart failure, unspecified; Z20.822 Contact with and (suspected) exposure to COVID-19; F17.210 Nicotine dependence, cigarettes, uncomplicated; Z79.82 Long term (current) use of aspirin; Z79.899 Other long term (current) drug therapy; Z79.84 Long term (current) use of oral hypoglycemic drugs
CPT/HCPCS: 0240U; 71045; 80053; 81003; 83880; 84484; 85025; 93005; 36415; J7620

== ENCOUNTER 2022-08-30 09:52 | Outpatient (CLI) | payer OTHER, MEDICAID | END 2022-08-30 09:53 | disposition home or self-care (01) | LOC: BICMAMMO 09:52 | PROVIDERS: ATTEND Registered Nurse Hospice | DX: Z12.31 Encounter for screening mammogram for malignant neoplasm of breast (principal) | CPT/HCPCS: 77063; 77067 ==